=== PATIENT | male | born 1990 | race Caucasian/White ===

== ENCOUNTER 2023-10-09 15:00 | Outpatient (AMB) | payer BC, SELFPAY ==
--- NOTE | 2023-10-09 15:01 | A.OFFVIS_ITS ---
Intake Visit Reasons: vasectomy consultation Intake Note: NEW Patient presents today for Vasectomy Consult: Meds- None Allergies to Antibiotic- No Known Allergies Blood Thinner- None Total of Children- 6 [facility] ? [facility] Sterilization Consent Form, has been given. 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 He has 6 children. He denies any history of medical conditions. He does not take any prescribed medications. Vasectomy procedure was discussed at length with the patient. He was informed that vasectomy is a safe, permanent, and effective form of control but there are risks involved. It may involve risk of hematoma, procedure failure which is rare, sperm granuloma which may cause mild pain, and congestion which may cause sense of pressure and generally resolves after several weeks. 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 The patient was advised that it is necessary to use other types of control methods like condom for 8-12 weeks until semen is evaluated for analysis to make sure there is no more sperm in the semen. Review of Systems Const All systems reviewed & are unremarkable except as noted in HPI and below Reports no additional complaints Eyes Reports no additional complaints ENT Reports no additional complaints Card Reports no additional complaints Resp Reports no additional complaints GI Reports no additional complaints Reports as per HPI Musc Reports no additional complaints Skin/Breast Reports system reviewed and no additional complaints, except as documented Neuro Reports no additional complaints Psych Reports no additional complaints Endo Reports no additional complaints Dennis/Lymph Reports no additional complaints Aller/Immun Reports no additional complaints Physical Exam Const General: healthy appearing, no acute distress and well developed Orientation/consciousness: patient oriented x3 HEENT Head: Yes normocephalic and Yes atraumatic Eyes Conjunctivae: conjunctivae normal Neck Neck: Yes normal visual inspection Chest Chest palpation & inspection: normal inspection of the chest Resp Effort & Inspection: normal respiratory effort Cardio Rate: regular rate GI Inspection: Yes normal to inspection Palpation (GI): Soft to palpation Skin General skin exam: no rashes or lesions noted Neuro General: patient oriented x3 Extrem General: No pedal edema Psych Appearance: grossly normal Affect: normal affect Assessment & Plan Assessment & Plan (1) Vasectomy evaluation: Code(s): Z30.09 - Encounter for other general counseling and advice on contraception Category: Medical (2) Anxiety about health: Code(s): R45.89 - Other symptoms and signs involving emotional state Category: Medical Plan Schedule vasectomy outpatient procedure Patient Instructions: The patient had an opportunity to ask questions regarding treatment plan. The patient expressed understanding and agreement with the above treatment plan. The patient is aware they should contact our office by phone for worsening of their current condition or the appearance of new symptoms. Compliance is encouraged with any medications and followup testing that is ordered. It is a privilege to be allowed the opportunity to participate in the urologic care of your patient. If you have any questions or concerns regarding treatment for the above conditions please do not hesitate to contact me. The office telephone contact is [phone]. This note is constructed in part using voice recognition software. While every effort has been made to ensure accuracy prize coordinator errors may have been included. Yours sincerely, Manuel Kevin MD Coding Level of Care Code New Pt Level 4 (54440) Diagnoses Vasectomy evaluation Z30.09 Anxiety about health R45.89
== END 2023-10-09 15:36 | disposition home or self-care (01) ==
PROVIDERS: PCP Student in an Organized Health Care Education/Training Program; Visit Provider Urology
DX: Z30.09 Encounter for other general counseling and advice on contraception (principal); R45.89 Other symptoms and signs involving emotional state
CPT/HCPCS: 99204

== ENCOUNTER → 2023-10-09 15:00 | Outpatient (BNVA) | payer BC, SELFPAY | PROVIDERS: PCP Student in an Organized Health Care Education/Training Program; Visit Provider Urology ==

== ENCOUNTER 2023-11-07 05:52 | Day surgery (SDC) | payer BC, SELFPAY ==
--- NOTE | 2023-11-06 12:59 | HO.ANESPROP2 ---
Documented by User: Yumiko Lyons NP 11/06/23 13:00 HPI - Anesthesia Eval Consult details Narrative: 33yo M for Vasectomy PMFSH Active Problems Active Problems: All Active Problems Anxiety about health (Acute) Vasectomy evaluation (Acute) Social History Social History Patient Tobacco Use Status: Never used Tobacco Use of substances other than those prescribed or required for medical reasons: Yes Substance Use Type Other:: smoked Substance Use Frequency: Daily Are you DNR?: No Advance Directives: No Advance Directives Information Provided: Yes Meds Allergies Allergy/AdvReac Type Severity Reaction Status Date / Time No Known Allergies Allergy Verified 11/07/23 06:04 Home Medications ?Medication ?Instructions ?Recorded ?Confirmed ?Last Taken ?Type No Known Home Meds 10/09/23 10/09/23 Unknown History Assessment and Plan Assessment Anesthesia Assessment: Chart Reviewed Documented by User: Reyna Dimas MD 11/07/23 07:31 PMFSH Family History Family history of problems with anesthesia: No Surgical History History of Problems with Anesthesia: No Social History Social History Patient Tobacco Use Status: Never used Tobacco Use of substances other than those prescribed or required for medical reasons: Yes Substance Use Type Other:: smoked Substance Use Frequency: Daily Are you DNR?: No Advance Directives: No Advance Directives Information Provided: Yes Meds Allergies Allergy/AdvReac Type Severity Reaction Status Date / Time No Known Allergies Allergy Verified 11/07/23 06:04 Home Medications ?Medication ?Instructions ?Recorded ?Confirmed ?Last Taken ?Type No Known Home Meds 10/09/23 10/09/23 Unknown History Exam Airway Mallampati Class: II TM Dist: >3cm Neck ROM: Full Heart: rrr Lungs: cta Assessment and Plan Assessment Anesthesia Assessment: Anesthesia Plan Discussed Final Anesthetic Review Family History of Problems with Anesthesia: No History of Problems with Anesthesia: No NPO: Yes ASA Class: III Final Preanesthetic Review: No Changes in Pt Med Stat, Meds/Allgs Chart Reviewed, Consent Obtained/Reviewed and Anes Risks/Benef Reviewed Patient Risk: Intermediate Procedure Risk: Low Anesthetic Plan Anesthetic Plan: GA Disposition: Standard PACU
[2023-11-07 06:05] VITALS: BMI 21.1
[2023-11-07 06:09] VITALS: BP 118/71; PULSE 53; RESP 15; TEMP 36.4; O2SAT 98
[2023-11-07] MEDS: Lactated Ringers 1,000 ML 100 ML IVCONT (06:27)
--- NOTE | 2023-11-07 07:27 | MHC.SHP ---
Pre-Procedural Eval Section A - 24 Hr Update-Section A only Date of Service: 11/07/23 The patient is an INPATIENT: No The patient has been examined within 24 hours of the surgical procedure. The History & Physical has been completed within 30 days and I have reviewed it.: Yes Section B - Complete if H&P > 30 days Chief Complaint: Vasectomy status Allergies: Allergies Allergy/AdvReac Type Severity Reaction Status Date / Time No Known Allergies Allergy Verified 11/07/23 06:04 Plan Diagnosis/Plan: Unchanged I have reviewed the history and physical and performed a pertinent physical examination on my patient. No changes have occurred unless specified. Bilateral Vasectomy. Discussed risks to include but not limited to hematoma, procedure failure which is rare, sperm granuloma which may cause mild pain, and congestion which may cause sense of pressure and generally resolves after several weeks. Also discussed is the reported post vasectomy pain syndrome with chronic testicular pain which is uncommon <5% The patient was advised that it is necessary to use other types of control methods for > 12 weeks and until semen evaluated to ensure there is no sperm in the semen. Time Spent With Patient Time: Total time managing care of this patient today ____ minutes.
--- NOTE | 2023-11-07 08:25 | W.PM.OPN ---
Operative Note Operative Note Date of Service: 11/07/23 Narrative: Preoperative diagnosis: Anxiety regarding unplanned Postoperative diagnosis: Anxiety regarding unplanned Procedure: Bilateral vasectomy Surgeon: Dr. Manuel Kevin Anesthesia: General Details of procedure:? The patient was brought into the operating room placed on the OR table in supine position.? 2 g of Ancef IV.? General anesthesia was administered.? The patient was prepped and draped in the usual sterile fashion. ? Time-out was done per protocol.? Both vasa were palpated through the skin using a 3 finger technique and at the penoscrotal junction. Starting on the right, the vas was elevated using a 3 finger grasping technique. Using the 15 blade knife an incision was made over the vas followed by a sharp spreading instrument the fascia was spread longitudinally in line with the vasa. The vasa was elevated from the scrotum using a ring clamp. Sharp and blunt dissection was used divide the vasal sheath and to strip the vasal sheath from the vasa. The vasal sheath was dissected from the vas in a proximal and distal fashion. This allowed the blood vessels of the vasa to retract from the vasa. The vasa was grasped with a forcep clamp on both sides and elevated from the incision. The vas was clamped on either side and a segment sent for path. 4.0 vicryl was used to apply a suture tie to the vasa and the needle tip cautery was used to cauterize the proximal and caudal end of the vas. Using 4 -0 vicryl, the fascia was used to over lay and bury each end of the vas. The similar procedure was repeated on the left side. Both skin incisions were closed with 3-0 chromic. Bacitracin ointment and gauze was applied. The patient tolerated the procedure well. He was brought out of anesthesia. He understands the need to continue to use control methods. A semen sample should be brought for inspection under the microscope in 12 weeks. Drains: none Complications: none
[2023-11-07 08:35] VITALS: BP 91/38; PULSE 47; RESP 16; TEMP 36.3; O2SAT 100
[2023-11-07 08:40] VITALS: BP 88/38; PULSE 46; RESP 16; O2SAT 100
[2023-11-07 08:45] VITALS: BP 92/38; PULSE 45; RESP 16; O2SAT 100
[2023-11-07 08:50] VITALS: BP 91/39; PULSE 47; RESP 16; O2SAT 97
[2023-11-07 09:05] VITALS: BP 110/62; PULSE 57; RESP 18; TEMP 36.1; O2SAT 100
== END 2023-11-07 09:39 | disposition home or self-care (01) ==
PROVIDERS: PCP Student in an Organized Health Care Education/Training Program; Visit Provider Urology
PROC: (CPT 55250; principal; 2023-11-07 07:30)
DX: Z30.2 Encounter for sterilization (principal); R45.89 Other symptoms and signs involving emotional state
CPT/HCPCS: 55250; 88302; J0690; J1100; J1885; J2250; J2405; J2704; J2795; J3010

== ENCOUNTER → 2023-11-07 05:52 | Outpatient (BNV) | payer BC, SELFPAY | PROVIDERS: PCP Student in an Organized Health Care Education/Training Program; Visit Provider Urology | DX: Z30.2 Encounter for sterilization (principal) | CPT/HCPCS: 55250 ==

== ENCOUNTER 2024-12-13 14:44 | Outpatient (REF) | payer BC, SELFPAY ==
--- OUTSIDE RECORDS SUMMARY | 2024-12-13 14:51 | XMS_ITS | Clinical Summary ---
Author Organization [facility] Address [address] [place] [address] Phone Care Team Providers Care Package Crimper Name Role Phone Snehal Velez MD Primary Care Provider [phone] Allergies No known active allergies Surgical History Surgery Date Site/Laterality Comments OTHER SURGICAL HISTORY PROCEDURE: DENIES PREVIOUS SURGERY Family History Medical History Relation Name Comments Asthma Mother Depression Mother Other: copd Mother Relation Name Status Comments Father Alive Mother Alive Social History Tobacco Use Types Packs/Day Years Used Date Smoking Tobacco: Former Cigarettes Q uit: 05/03/2011 Alcohol Use Standard Drinks/Week Comments Not Asked 0 (1 standard drink = 0.6 oz pur e alcohol) Sex and Gender Information Value Date Recorded Sex Assigned at Male 07/24/2024 1:18 PM EDT Legal Sex Male 4:48 PM EST Gender Identity Male 07/24/2024 1:18 PM EDT Sexual Orientation Straight 07/24/2024 1: 18 PM EDT Obstetrics History Last Filed Vital Signs Vital Sign Reading Time Taken Comments Blood Pressure 127/73 07/24/2024 1:26 PM EDT Pulse 63 07/24/2024 1:26 PM EDT Temperature 36.6 C (97.9 F) 07/24/2024 1:26 PM EDT Respiratory Rate 18 07/24/2024 1:26 PM EDT Oxygen Saturation 98% 07/24/2024 1:26 PM EDT Inhaled Oxygen Concentration - - Weight 77.1 kg (170 lb) 07/24/2024 1:26 PM EDT Height 170.2 cm (5' 7 ) 07/24/2024 1:26 PM EDT Body Mass Index 26.63 07/24/2024 1:26 PM EDT Plan of Treatment Health Maintenance Due Date Last Done Comments DTaP,Tdap,and Td Vaccines (1 - Tdap) 01/26/2008 Hepatitis B Vaccines (3 of 3 - 19+ 3-dose series) 12/18/2013 07/18/2013, 06/20/2013 Cholesterol Screening (Lipid Panel) 03/23/2022 HIV Screening 03/23/2022 Hepatitis C Screening 03/23/2022 Social Influencers of Health Screening 03/23/2022 COVID-19 Vaccine (1 - 2023-2 5 season) 2023 Depression Screening 04/24/2024 Influenza Vaccine (#1) 2024 01/06/2015 HIB Vaccines Aged Out No longer eligi ble based on patient's age to complete this topic HPV Vaccines Aged Out No longer eligi ble based on patient's age to complete this topic Hepatitis A Vaccines Aged Out No long er eligible based on patient's age to complete this topic IPV Vaccines Aged Out No longer eligi ble based on patient's age to complete this topic MMR Vaccines Aged Out No longer eligi ble based on patient's age to complete this topic Meningococcal ACWY Vaccine Aged Out N o longer eligible based on patient's age to complete this topic Meningococcal B Vaccine Aged Out No l onger eligible based on patient's age to complete this topic Pneumococcal Vaccine: Pediatrics (0 to 5 Years) and At-Risk Patients (6 to 49 Years) Aged Out No longer eligible b ased on patient's age to complete this topic RSV Immunization Patients Under 20 months Aged Out No longer eligible b ased on patient's age to complete this topic Varicella Vaccines Aged Out No longer eligible based on patient's age to complete this topic Insurance [facility]) Care Teams Package Crimper Relationship Specialty Start Date End Date Snehal Velez MD [address] [place] [id number] PCP - General Family Medicine 07/24/24
--- OUTSIDE RECORDS SUMMARY | 2024-12-13 14:51 | XMS_ITS | Clinical Summary ---
Author Organization [employer] Address [address] [facility] [address] [place] [address] Care Team Providers Care Screen Stretcher Name Role Phone Delisa Parham CNP Primary Care Provider [phone] Allergies No known active allergies Medications ergocalciferol (Vitamin D2) 1.25 MG (36238 UT) capsuleIndicati ons:Vitamin D deficiency 49811 units once a week x 12 weeks. 12 capsule 3 Active Additional Information Patient not taking.Reason: Other, Reported on 12/12/2024 famotidine (Pepcid) 20 MG tablet 5 Active ibuprofen 600 MG tablet 5 Active methylPREDNISol one (Medrol Dospak) 4 MG tablets follow package directions 5 Active Active Problems Problem Noted Date Diagnosed Date Anxiety about health 12/13/2024 Vasectomy evaluation 12/13/2024 Encounters Date Type Department Care Team Description 12/13/2024 1:45 PM EDT Office Visit [facility] [address], [place] [phone] Megan Hussein MD Dizziness (Primary Dx); Diplopia 12/13/2024 Travel 12/12/2024 Telephone [facility] [address] [place] [address] Delisa Parham CNP Nurse Triage from Last 3 Months Immunizations Immunization Administration Dates Next Due Hep B, adult 07/18/2013,06/20/2013 Influenza injectable quadriv alent IIV4 with preservative 01/06/2015 Social History Tobacco Use Types Packs/Day Years Used Date Smoking Tobacco: Never Passive Smoke Exposure: Never Smokeless Tobacco: Never Tobacco Cessation:Counseling Given: Not Answered Alcohol Use Standard Drinks/Week Comments Never 0 (1 standard drink = 0.6 oz pur e alcohol) Sex and Gender Information Value Date Recorded Sex Assigned at Male 02/21/2022 10:28 AM EDT Legal Sex Male 10:28 AM EDT Gender Identity Male 02/21/2022 10:28 AM EDT Sexual Orientation Straight 02/21/2022 10 :28 AM EDT Last Filed Vital Signs Vital Sign Reading Time Taken Comments Blood Pressure 133/80 12/13/2024 2:28 PM EDT Pulse 44 12/13/2024 2:28 PM EDT Temperature 37.1 C (98.7 F) 12/13/2024 2:25 PM EDT Respiratory Rate 20 12/13/2024 2:28 PM EDT Oxygen Saturation 98% 12/13/2024 2:25 PM EDT Inhaled Oxygen Concentration - - Weight 57.8 kg (127 lb 6.4 oz) 12/13/2024 2:25 P M EDT Height 167.6 cm (5' 6 ) 12/13/2024 2:25 PM EDT Body Mass Index 20.56 12/13/2024 2:25 PM EDT Plan of Treatment Upcoming Encounters Date Type Department Care Team (Late st Contact Info) Description 12/24/2024 10:00 AM EDT Office Visit [facility] [address] [place] [id number] Delisa Parham, [address] [address] Health Maintenance Due Date Last Done Comments Depression Screening 1989 HIV Screening 1989 Lipid Panel 1989 SDOH Screening 1989 Alcohol/Substance Use Screening 2001 Family Planning (PISQ) 01/26/2004 HPV Vaccines (1 - Male 3-dos e series) 01/26/2004 Hepatitis C Screening 2007 DTaP/Tdap/Td Vaccines (1 - Tdap) 01/26/2008 Hepatitis B Vaccines (3 of 3 - 19+ 3-dose series) 12/18/2013 07/18/2013, 06/20/2013 Tobacco Screening 05/17/2023 05/17/2022 COVID-19 Vaccine (1 - 2023-2 5 season) 2023 Influenza Vaccine (#1) 2024 01/06/2015 Disability Screening 12/13/2025 12/13/2024 Zoster Vaccines (1 of 2) 2039 RSV Patients and Patients Aged 60 years or older (1 - 1-dose 75+ series) 01/26/2064 HIB Vaccines Aged Out No longer eligi [...] patient's age to complete this topic Meningococcal Vaccine Aged Out No kole travis eligible based on patient's age to complete this topic Pneumococcal Vaccine: Pediatrics (0 to 5 Years) and At-Risk Patients (6 to 49) Years Aged Out No longer eligible b ased on patient's age to complete this topic RSV under 20 months Aged Out No longe r eligible based on patient's age to complete this topic Rotavirus Vaccines Aged Out No longer eligible based on patient's age to complete this topic Procedures Procedure Name Priority Date/Time Associated Diagnosis Comments POCT GLUCOSE Routine 12/13/2024 2:37 PM EDT Dizziness from Last 3 Months Results * POCT Glucose (12/13/2024 2:37 PM EDT) Glucose Blood, POC 109 60 - 200 mg/dL QC Media Lot # [id number] Lot# Expiration Date Blood Capillary blood specimen / Unknown 12/13/2024 2:37 PM EDT Megan Hussein MD POINT OF CARE TEST ENTER/EDIT ORDERABLES Final Result from Last 3 Months Insurance BCBS PPO Care Teams Screen Stretcher Relationship Specialty Start Date End Date Delisa Parham CNP [address] [place] [id number] PCP - General Family Medicine 11/29/24
--- OUTSIDE RECORDS SUMMARY | 2024-12-13 14:51 | XMS_ITS | Clinical Summary ---
Author Organization [facility] Address [address] [place] [address] Care Team Providers Care Tower Watchman Name Role Phone Snehal Velez Primary Care Provider [phone] Allergies No known active allergies Medications No known medications Social History Tobacco Use Types Packs/Day Years Used Date Smoking Tobacco: Never Assessed Sex and Gender Information Value Date Recorded Sex Assigned at Male 03/07/2024 3:00 PM EST Legal Sex Male 2:57 PM EST Gender Identity Male 03/07/2024 3:00 PM EST Sexual Orientation Straight 05/06/2024 8: 43 AM EST Plan of Treatment Health Maintenance Due Date Last Done Comments HIV Screening 1989 Hepatitis C Screening 1989 Varicella Vaccines (1 of 2 - 13+ 2-dose series) 2002 Hepatitis B Vaccines (1 of 3 - 19+ 3-dose series) 01/26/2008 DTaP,Tdap,and Td Vaccines (1 - Tdap) 2011 COVID-19 Vaccine ( - 2023-2 5 season) 2023 Alcohol/Substance Use Screening 04/24/2024 Depression Screening and Follow-Up 04/24/2024 Social Drivers of Health Michelle ual Screening 04/24/2024 Influenza Vaccine (#1) 2024 RSV Vaccine (60+ years old a nd patients) (1 - 1-dose 75+ series) 01/26/2064 Pneumococcal Vaccine: Pediat lucy (0-5 Years) and At-Risk Patients (6-50 Years) Aged Out No longer eligible b ased on patient's age to complete this topic Insurance [employer]BS OUT OF STATE PPO Member Subscriber Plan / Payer (Ef fective 2022-Present) Name:Gavin Bhakta Member ID:[id number] Relation to Subscriber:Self Name:Gavin Bhakta Subscriber ID:[id number] Payer ID:[id number] (NAIC) Type:Not on file Address: [address] [facility] [id number] [place] [address] Care Teams Tower Watchman Relationship Specialty Start Date End Date Snehal Velez [address] [place] [phone] PCP - General Family Medicine 07/25/24
[2024-12-13 15:49] LABS: MANUAL DIFF FLAG NO
[2024-12-13 16:15] LABS: Hematocrit 45.1 % (42.0-52.0); Hemoglobin 15.6 g/dl (14.0-18.0); Imm Gran Abs Auto 0.01 X10*3/uL (0.00-0.03); Imm Gran Pct Auto 0.2 % (0.0-0.4); Lymphocytes Absolute Auto 2.1 X10*3/uL (1.2-4.9); Mean Corpuscular HGB Conc 34.6 g/dl (31.0-36.0); Mean Corpuscular Hemoglobin 28.9 pg (27.0-33.0); Mean Corpuscular Volume 83.5 fL (80.0-98.0); NRBC Abs Auto 0.000 X10*3/uL (0.0-0.012); NRBC Pct Auto 0.0 /100WBC (0.0-0.2); Platelet Count 346 X10*3/uL (160-400); Red Blood Count 5.40 X10*6/uL (4.60-5.80); White Blood Count 6.5 X10*3/uL (4.8-10.8)
[2024-12-13 16:44] LABS: Alanine Aminotransferase 31 U/L (0-40); Albumin Level 5.2 g/dL (3.5-5.0); Alkaline Phosphatase 46 U/L (39-117); Anion Gap 14 (12-20); Aspartate Amino Transferase 24 U/L (5-37); Blood Urea Nitrogen 14 mg/dL (9-16); Calcium 10.1 mg/dL (8.4-10.2); Carbon Dioxide 27 mmol/L (22-29); Chloride 102 mmol/L (96-108); Estimated Glomerular Filt Rate > 60; Iron 166 mcg/dL (45-160); Percent Iron Saturation 51 % (15-50); Potassium 4.7 mmol/L (3.3-5.1); Sodium 138 mmol/L (135-145); Total Iron Binding Capacity 328 mcg/dL (228-428); Total Protein 7.8 g/dL (6.5-8.0); Unsaturated Iron Binding 162 ug/dL
[2024-12-13 17:13] LABS: Folate 12.8 ng/mL (> or = 4.0); Vitamin B12 410 pg/mL (200-900)
== END 2024-12-13 14:45 | disposition home or self-care (01) ==
LOC: HO.CHCLDS 14:44
PROVIDERS: Visit Provider Family Medicine
DX: R42 Dizziness and giddiness (principal)
CPT/HCPCS: 36415; 80053; 82607; 82746; 83540; 83921; 84443; 85025